=== PATIENT | female | born 1960 | race Caucasian/White ===

== ENCOUNTER 2024-03-18 16:23 | Emergency (ER) | payer MEDICARE, OTHER ==
[~2024-03-18] VITALS: Ht 149.9 cm; Wt 49.0 kg
[2024-03-18 19:40] LABS: BASOPHILS % (AUTO) 0.5 % (0.0-2.0); EOSINOPHILS % (AUTO) 0.1 % (0.0-7.0); HEMATOCRIT 37.6 % (31.2-41.9); HEMOGLOBIN 12.9 g/dL (10.9-14.3); LYMPHOCYTES % (AUTO) 27.1 % (20.5-51.5); MEAN CORPUSCULAR HEMOGLOBIN 31.1 uug (24.7-32.8); MEAN CORPUSCULAR HGB CONC 34 g/dL (32.3-35.6); MEAN CORPUSCULAR VOLUME 90.5 fL (75.5-95.3); MONOCYTES # (AUTO) 0.3 K/uL (0.1-1.30); MONOCYTES % (AUTO) 7.3 % (0.0-11.0); NEUTROPHILS # (AUTO) 2.4 K/uL (1.8-8.9); PLATELET COUNT (AUTO) 208 K/uL (179-408); RED BLOOD CELL COUNT(AUTO) 4.15 MIL/uL (3.63-4.92); WHITE BLOOD COUNT (AUTO) 3.7 K/uL (3.8-11.8)
[2024-03-18] MEDS: ALBUTEROL SULFATE 2.5 MG/3 ML NEBU NEB ONE (19:45)
[2024-03-18 19:48] LABS: CALCIUM 8.5 mg/dL (8.5-10.1); CREATININE 0.9 mg/dL (0.6-1.3); POTASSIUM 3.8 mmol/L (3.5-5.1)
[2024-03-18 19:50] LABS: DIFFERENTIAL COMMENT 1
[2024-03-18] MEDS ORDERED: ALBUTEROL SULFATE 2.5 MG/3 ML NEBU ONE (19:52)
[2024-03-18 19:55] VITALS: O2SAT 98
[2024-03-18 20:00] LABS: ALBUMIN 3.7 g/dL (3.4-5.0); BILIRUBIN,TOTAL 0.2 mg/dL (0.2-1.0); TOTAL PROTEIN, SERUM 7.7 g/dL (6.4-8.2)
[2024-03-18 20:09] VITALS: O2SAT 98
[2024-03-18 20:10] VITALS: O2SAT 99
[2024-03-18] MEDS ORDERED: OSEL75CA PO (20:43)
[2024-03-18] MEDS ORDERED: BENZ-13 PO (20:43)
[2024-03-18] MEDS ORDERED: ALBU18HF2 INH (20:43)
[2024-03-18] MEDS ORDERED: OSELTAMIVIR PHOSPHATE 75 MG CAPSULE ONE (20:52)
[2024-03-18] MEDS: OSELTAMIVIR PHOSPHATE 75 MG CAPSULE PO ONE (21:00)
[2024-03-18 21:05] VITALS: BP 123/73; TEMP 98; O2SAT 99
== END 2024-03-18 21:05 | disposition home or self-care (01) ==
LOC: EDBD 16:23 → ER 16:23
DX: J11.1 Influenza due to unidentified influenza virus with other respiratory manifestations (principal); R06.03 Acute respiratory distress; K21.9 Gastro-esophageal reflux disease without esophagitis; Z20.822 Contact with and (suspected) exposure to COVID-19; Z79.899 Other long term (current) drug therapy
CPT/HCPCS: 36415; 71045; 84484; 85025; A4606; A4663